=== PATIENT | female | born 1960 | race American Indian/Alaskan Native ===

== ENCOUNTER 2016-11-28 08:02 | Day surgery (SDC) | payer OTHER ==
[~2016-11-28 08:02] MED LIST: ADRENALIN ONE; ANCEF/STERILE WATER 2 GM/20 ML 2 GM/20 ML SYRINGE IV NR; ANCEF/STERILE WATER 2 GM/20 ML IV NR; XYLOCAINE 1% 20 mL ONE
[2016-11-28] MEDS ORDERED: NACL BACTERIOSTATIC INFILTRATI ONE (09:43)
--- NOTE | 2016-11-28 09:48 | Anesthesia Consultation ---
Anesthesia Consult and Med Hx Date of service: 11/28/16 - Airway Anesthetic Teeth Evaluation: Good ROM Head & Neck: Adequate Mental/Hyoid Distance: Adequate Mallampati Class: Class II Intubation Access Assessment: Probably Good - Pulmonary Exam CTA: Yes - Cardiac Exam Cardiac Exam: RRR - Pre-Operative Health Status ASA Pre-Surgery Classification: ASA2 Proposed Anesthetic Plan: General - Pulmonary Hx Smoking: No Hx Sleep Apnea: No (MOHIT PRE SCREEN LOW RISK) - Cardiovascular System Hx Hypertension: Yes (X 3 YRS) Hx Heart Murmur: Yes - Other Systems Hx Cancer: No
--- NOTE | 2016-11-28 09:48 | Anesthesia Day of Surgery ---
Anesthesia Day of Surgery - Day of Surgery Patient Examined: Yes Patient H&P Reviewed: Yes Patient is NPO: Yes Cardiac Clearance: Yes
[2016-11-28] MEDS ORDERED: PEPCID PO NR (10:00)
[2016-11-28] MEDS ORDERED: VERSED IV NR (10:00)
[2016-11-28] MEDS ORDERED: LACTATED RINGERS 1,000 ML IV SCH (10:00)
[2016-11-28] MEDS ORDERED: SUBLIMAZE ONE (11:08)
[2016-11-28] MEDS ORDERED: XYLOCAINE MPF 2% ONE (11:08)
[2016-11-28] MEDS ORDERED: DIPRIVAN 10 MG/ML IV ONE (11:09)
[2016-11-28] MEDS ORDERED: XYLOCAINE 1% 20 mL INFILTRATI ONE (11:30)
[2016-11-28] MEDS ORDERED: NACL 0.9% IR ONE (11:35)
[2016-11-28] MEDS ORDERED: ADRENALIN IV ONE (11:35)
[2016-11-28] MEDS ORDERED: ZOFRAN ONE (11:57)
--- NOTE | 2016-11-28 12:02 | Short Stay Summary ---
Short Stay Documentation Date of service: 11/28/16 - History H&P: obtained from office - Allergies and Medications Current Medications: Allergies latex Allergy (Verified 11/23/16 15:30) Itching oxycodone HCl [From Tylox] Allergy (Verified 11/23/16 15:30) Vomiting Home Medications Medication Instructions Recorded Confirmed Last Taken Type Alendronate Sodium [Fosamax] 70 mg PO QWEEK 11/23/16 11/23/16 11/27/16 History Ezetimibe/Simvastatin (Nf) 1 tab PO QHS 11/23/16 11/23/16 11/27/16 History [Vytorin 10-40 mg (Nf)] Lisinopril [Zestril TAB] 10 mg PO QDAY 11/23/16 11/28/16 11/28/16 07:00 History Naproxen [Naprosyn] 375 mg PO PRN PRN 11/23/16 11/28/16 3 Weeks Ago History Active Medications Famotidine (Pepcid) 20 mg PO PREOP NR Stop: 11/28/16 12:00 Last Admin: 11/28/16 10:11 Dose: 20 mg Cefazolin Sodium (Ancef/Sterile Water 2 Gm/20 Ml) 2 gm in 20 mls @ 80 mls/hr IV PREOP NR PRN Reason: Protocol Stop: 11/28/16 12:00 Lactated Ringer's (Lactated Ringers) 1,000 mls @ 100 mls/hr IV DIRECT AUDREY Last Admin: 11/28/16 09:50 Dose: 100 mls/hr Midazolam HCl (Versed) 2 mg IV PREOP NR Stop: 11/28/16 23:59 Last Admin: 11/28/16 10:11 Dose: 2 mg - Brief post op/procedure progress note Date of procedure: 11/28/16 Pre-op diagnosis: right knee lateral meniscus tear Post-op diagnosis: other (persistent right knee pain, large complex tear anterior horn lateral meniscus) Procedure: right knee arthroscopy partial lateral meniscectomy Anesthesia: GETA Findings: as above Surgeon: KUNAL LIMON [employer] Climber: DARIO SEGURA III Estimated blood loss: minimal Pathology: none Condition: stable - Disposition Condition at discharge: Good Disposition: DC-01 TO HOME OR SELFCARE Short Stay Discharge Plan Follow up with: NAE BURCIAGA [Other] - 7 Days
[2016-11-28] MEDS: DILAUDID IV PRN ×3 (12:15→12:40)
[2016-11-28] MEDS ORDERED: ZOFRAN IV PRN (12:16)
[2016-11-28] MEDS ORDERED: DILAUDID ONE (12:17)
[2016-11-28] MEDS ORDERED: TORADOL IV PRN (12:45)
--- NOTE | 2016-11-28 14:01 | Operative Report ---
PREOPERATIVE DIAGNOSIS: Persistent right knee pain, lateral meniscus tear. POSTOPERATIVE DIAGNOSES: Persistent right knee pain, mechanical symptoms, large complex tear located in the anterior horn of the lateral meniscus. Grade 1 articular cartilage loss lateral femoral condyle, lateral tibial plateau as well as central aspect of the patella and trochlea. OPERATIVE PROCEDURE: Right knee arthroscopy, partial lateral meniscectomy. SURGEON: Otf Xie MD. RACKER OCTAVE BOARD: Lobo Cook III, katelin GREEN. ANESTHESIA: General. PREOPERATIVE ANTIBIOTICS: Ancef 2 grams IV within 1 hour of skin incision. DVT PROPHYLAXIS: Open toe, knee high compression stockings, and SCD pumps to the nonoperative left lower extremity. OPERATIVE COMPLICATIONS: None. PREOPERATIVE HISTORY AND PHYSICAL: This is a 56-year-old female, who has had persistent progressively worsening right knee pain with mechanical symptoms, which has failed to improve despite extensive nonoperative treatment. The pain markedly limits her day-to-day activities. MRI scan was performed, which was positive for a tear located within the anterior horn of the lateral meniscus. The patient's MRI findings and diagnoses were discussed at length and after making sure the patient understood that diagnosis and all questions were answered. We then discussed treatment alternatives of surgical and nonsurgical including risks and benefits of both. After a long lengthy discussion, the patient opted to proceed with operative intervention. This will entail a right knee arthroscopy, partial lateral meniscectomy and surgery as indicated. The risks of which were discussed to include, but not exclusive of infection, blood loss, nerve damage, loss of range of motion, persistent pain. Again, the patient understood, all of her questions were answered, she wished to proceed with operative intervention. OPERATIVE PROCEDURE: The patient was seen in the preoperative holding room area at which point an informed consent was reviewed and appropriate right lower extremity was identified and then marked. The patient was then brought back to the operating room, placed supine on the standard operating room table, at which point general anesthesia was administered and LMA tube was inserted. After confirmation of adequate general anesthesia and checking proper placement of LMA tube, we then made sure that all bony prominences were well padded. The arms secured neutral position at the patient's side with aid of the arm board. The head was secured in a nice neutral position as well the left lower extremity. We made sure there were no wrinkles in the compression stockings and an SCD pump was applied to left lower extremity. The right lower extremity was then examined under anesthesia. The patient was seen to have full range of motion. There was no evidence of instability with a negative Muriel, negative anterior drawer, negative posterior drawer. No varus or valgus instability at zero as well as 30 degrees of flexion. Following examination under anesthesia, the right lower extremity was then prepped and draped in usual sterile fashion. After prepping and draping, a timeout was called and appropriate right lower extremity was identified, which again had been marked in the preoperative holding room area. We began the procedure by first infiltrating the knee with 30 mL of 1% lidocaine without epi as well as 15 mL of 0.5% Sensorcaine with epi, which the patient tolerated well. There were no complications. Following this, we began the procedure by first making a standard anterolateral portal with #15 blade. Once the portals were established the cannula with the blunt trocar was inserted into the intra-articular aspect of the knee joint. This went without difficulty or damage to articular cartilage. Once in place, the arthroscopic camera was immediately placed in the medial compartment. We established anteromedial portal by first an 18 gauge spinal needle under arthroscopic visualization. Once confirmed to be superior to medial meniscus a 15 blade was then used to establish the anteromedial portal. Once the portal was established, the blunt trocar was inserted to widen the portal site followed by an arthroscopic probe. We began diagnostic arthroscopy in the lateral compartment where the patient have a large complex tear located within the anterior horn of the lateral meniscus, which was almost a bucket handle tear, which involve the white-white, white-red as well as the red-red zones. This was irreparable. We performed a partial lateral meniscectomy in standard fashion using series of basket punches and the 4.0 meniscal shaver down to a nice, smooth, stable healthy remaining border all now removing the white-white, white-red as well as a portion of the red-red zone. There was grade 1/2 articular cartilage loss from the entire weightbearing portion of the lateral femoral condyle and lateral tibial plateau. Inspection of the notch showed the ACL and PCL to be intact and stable when probed. Inspection of the medial compartment showed there were no tears in the anterior or posterior horn of the medial meniscus. There was mild grade 1 articular cartilage loss in the medial femoral condyle and medial tibial plateau. Inspection of the medial and lateral gutters showed these to be free and clear of all loose bodies. Inspection of patellofemoral joint showed to be grade 2 articular cartilage loss central aspect of patella and trochlea. Inspection of suprapatellar pouch showed to be no loose bodies present. Arthroscopic camera was then placed in the posterior aspect of the knee, just cruciate ligament and femoral condyle. Once the posterior aspect of the knee was felt there were no root tears menisci and no loose bodies present. Arthroscopic camera was then removed from the posterior aspect of the knee. The arthroscopic pump was turned off to make sure there was good hemostasis. Once this was confirmed, the extraneous fluid was suctioned from the knee using arthroscopic cannula. Following this, all the arthroscopic instrumentation was removed. The 2 portal sites were then closed with 3-0 nylon in simple fashion. Adaptic, 4 x 4, ABD, open toe thigh compression stocking was applied. The patient then awakened from general anesthesia without complications, taken to Recovery Room in stable condition and standard postoperative orders were written. JOB# [id number] MAC/ZORAIDA
[2016-11-28] MEDS ORDERED: ZOFRAN IV ONE (15:00)
[2016-11-28 18:48] VITALS: BP 147/85
== END 2016-11-28 15:50 | disposition home or self-care (01) ==
LOC: OR 08:02
PROVIDERS: ATTEND Orthopaedic Surgery
DX: S83.281A Other tear of lateral meniscus, current injury, right knee, initial encounter (principal); X58.XXXA Exposure to other specified factors, initial encounter; Y93.89 Activity, other specified; Y92.89 Other specified places as the place of occurrence of the external cause; Y99.8 Other external cause status; I10 Essential (primary) hypertension; Z91.040 Latex allergy status
CPT/HCPCS: 29881; A4217; J0171; J0690; J1170; J1885; J2250; J2405; J2704; J3010; J7120